=== PATIENT | male | born 1960 | race Caucasian/White ===

== ENCOUNTER 2016-12-02 10:58 | Day surgery (SDC) | payer BC ==
[~2016-12-02 10:58] MED LIST: DIPRIVAN 200 MG/20 ML IV ONE; SUBLIMAZE 100 MCG/2 ML IV ONE; Versed 2 MG/2 ML Injection IV ONE
[2016-12-02] MEDS ORDERED: Lactated Ringers 1,000 ML IV SCH (11:30)
--- NOTE | 2016-12-02 11:54 | HP ---
DATE OF SURGERY: 12/02/2016 HISTORY OF PRESENT ILLNESS: The patient is a 56 year-old had some rectal bleeding a month or so ago, for three days dark blood. Improved, had some dull aches lower abdomen moving towards the back. Family history negative for colon cancer. Last colonoscopy ten years ago. He is in need of follow up screening colonoscopy. PAST MEDICAL HISTORY: Asthma, restless leg syndrome, arthritis. PAST SURGICAL HISTORY: Left wrist repair in the past. MEDICATIONS: Albuterol, pramipexole, diclofenac. ALLERGIES: NKDA. FAMILY HISTORY: Lung cancer, uterine cancer, leukemia, and breast cancer but negative for colon cancer. SOCIAL HISTORY: No smoking. He does drink some alcohol denies abuse. REVIEW OF SYSTEMS: Ten systems reviewed per preadmission questionnaire. No chest pain or palpitations other systems negative or noncontributory as above and per admission assessment. PHYSICAL EXAMINATION: GENERAL: No acute distress. HEENT: Sclerae nonicteric. NECK: No JVD. CHEST: Equal excursion, nonlabored breathing. CVS: Regular rate and rhythm. ABDOMEN: Soft, nontender currently. He has some history of lower abdominal aches radiating towards his back. No peritoneal signs. EXTREMITIES: No significant edema. NEURO: Alert, moving extremities symmetrically. No gross motor deficits noted. RECTAL: Deferred timed to endoscopy exam. IMPRESSION: A 56 year-old in need of follow up screening colonoscopy. I feel he is a candidate. Risks and benefits explained in detail but not limited to bleeding or infection, small risk of bowel injury or perforation possibly requiring open procedure, small risk of missed or nondiagnosis or incomplete exam possibly requiring barium enema, other studies or procedures, general risk of bowel prep, risk of sedation, postoperative risk of nausea, vomiting or cramping but not limited to. He understands and agrees to the planned procedure and will proceed with outpatient screening colonoscopy.
--- NOTE | 2016-12-02 13:49 | OP ---
SURGERY DATE: 12/02/16 SURGERY TIME: 1250 PREOPERATIVE DIAGNOSIS: 1. NEED FOR SCREENING COLONOSCOPY. PATIENT REPORTED LAST COLONOSCOPY 10 YEARS OR MORE AGO. NO CURRENT RECTAL BLEEDING. POSTOPERATIVE DIAGNOSIS: 1. POOR PREP LIMITING THE EXAM. 2. FEW DIVERTICULA. 3. SMALL POLYP TRANSVERSE COLON. 4. SMALL RAISED LESIONS VS HYPERPLASTIC LESIONS RECTUM. 5. SMALL INTERNAL/EXTERNAL HEMORRHOIDS. 6. SLIGHTLY TORTUOUS COLON. PROCEDURE: 1. Colonoscopy to cecum. 2. Hot snare polypectomy small transverse colon polyp. 3. Hot biopsy removal small raised lesion vs hyperplastic lesions rectum X 5 or 6. SURGEON: Dr. Amador Simons. ANESTHESIA: MAC. ESTIMATED BLOOD LOSS: Minimal. INDICATIONS: As noted above. Risks and benefits explained in detail, but not limited to. Consent was obtained. DESCRIPTION OF PROCEDURE AND FINDINGS: The patient was taken to the endoscopy room. MAC anesthesia introduced. After official time-out, no disagreement in planned procedure. Digital rectal exam did not reveal any rectal masses. He did have some small internal/external hemorrhoids. Video colonoscope inserted and passed up through the poorly prepped colon through the sigmoid, descending, and transverse colon. With external pressure, the scope was able to be passed down the ascending colon to the cecum. The appendiceal orifice and valve were well visualized. Prep overall was poor with several areas of liquidy, semi-solid stool limiting the exam for potentially small lesions. This was suction irrigated out as well as possible, but did limit the exam. On withdrawal of the scope, there were no signs of any large polyps, masses, or obstructing lesions in the right colon. In the transverse colon, there was a small polyp about 3 mm in size removed with hot snare polypectomy and brief bursts of cautery. Initially, the staff couldn't find it. They then later said that they thought they had found the polyp and sent off for pathology. Otherwise, he had a few diverticula and some small internal/external hemorrhoids in the rectum. There were 5 or 6 small little raised lesions. Whether these are hyperplastic lesions vs early polyps or a variation in mucosa, they were removed with hot biopsy forceps and brief bursts of cautery. Good hemostasis was noted. Otherwise, there were no signs of any large polyps, masses, or obstructing lesions. Again, the prep did limit the exam for potentially small lesions. Pending follow-up of path results, might need a follow-up colonoscopy in 3 years if any adenomas or possibly 5 years if all hyperplastic lesions given the quality of the prep. Findings discussed with the family out in the waiting area.
[2016-12-02 15:02] VITALS: O2SAT 98
[2016-12-02 15:04] VITALS: BP 126/76; PULSE 58
== END 2016-12-02 14:45 | disposition home or self-care (01) ==
LOC: SDC 10:58
PROVIDERS: ATTEND Surgery
PROC: 0DBL8ZX Excision of Transverse Colon, Via Natural or Artificial Opening Endoscopic, Diagnostic (ICD-10-PCS; principal; 2016-12-02)
PROC: 0DBP8ZX Excision of Rectum, Via Natural or Artificial Opening Endoscopic, Diagnostic (ICD-10-PCS; 2016-12-02)
DX: D12.3 Benign neoplasm of transverse colon (principal); K57.90 Diverticulosis of intestine, part unspecified, without perforation or abscess without bleeding; K64.4 Residual hemorrhoidal skin tags; K64.8 Other hemorrhoids; Z12.11 Encounter for screening for malignant neoplasm of colon
CPT/HCPCS: 00810; 36415; 88305; J2250; J2704; J3010

== ENCOUNTER 2018-12-15 17:55 | Emergency (ER) | payer BC, OTHER ==
--- NOTE | 2018-12-15 18:35 | ERPHSYRPT ---
- History of Present Illness Source: patient Exam Limitations: no limitations Patient Subjective Stated Complaint: states fell one week ago injuring left lower leg. has had increasing swelling and tenderness to injured area. went to [facility] care today and was sent to er for eval. Triage Nursing Assessment: ambulated to room per self. skin w/d, color normal, resp easy. moderate swelling noted to left lower leg with bruising. good pedal pulse noted to left foot. Method of Injury: fell Occurred: last week Quality: constant Lower Extremities Pain: leg: left Modifying Factors: Improves With: nothing Associated Symptoms: other (pain and swelling left leg) Hx Tetanus, Diphtheria Vaccination/Date Given: Yes Hx Influenza Vaccination/Date Given: No Hx Pneumococcal Vaccination/Date Given: No <YOU YBARRA - Last Filed: 12/15/18 19:01> <SAMIA ALVAREZ - Last Filed: 12/15/18 21:36> - History of Present Illness Time Seen by Provider: 12/15/18 18:30 Physician History: 58-year-old white male arrives with complaint of pain and swelling of his left leg symptoms for one week. According to patient he fell a week ago he's noted swelling which is progressing and pain in his left leg. He states there is felt somewhat hot. He presented to [facility] and was promptly redirected to the emergency room. Past medical history includes asthma, arthritis, rectal bleeding. Past surgical history includes hernia repair, orthopedic surgery, left wrist ORIF, right knee surgery (total knee replacement) . social history occasional alcohol use denies tobacco use. (YOU YBARRA) Allergies/Adverse Reactions: stings Allergy (Severe, Uncoded 12/15/18 18:10) Hives wasps stings Home Medications: Albuterol 8 gm Mdi Hfa [Ventolin Hfa MDI] 2 puffs IH BID PRN 12/02/16 [ History] - Review of Systems Constitutional: No Fever, No Chills Eyes: No Symptoms Ears, Nose, & Throat: No Symptoms Respiratory: No Cough, No Dyspnea Cardiac: No Chest Pain, No Edema, No Syncope Abdominal/Gastrointestinal: No Abdominal Pain, No Nausea, No Vomiting, No Diarrhea Genitourinary Symptoms: No Dysuria Musculoskeletal: Other (left leg moderate edema, mild erythema left leg, mild calf tenderness, old healed incisionleft knee) Skin: Other (mild erythema left leg) Neurological: No Dizziness, No Focal Weakness, No Sensory Changes Psychological: No Symptoms Endocrine: No Symptoms All Other Systems: Reviewed and Negative <YOU YBARRA - Last Filed: 12/15/18 19:01> - Past Medical History Pertinent Past Medical History: Yes Neurological History: No Pertinent History ENT History: No Pertinent History Cardiac History: No Pertinent History Respiratory History: Asthma Endocrine Medical History: No Pertinent History Musculoskeletal History: Arthritis GI Medical History: Other History: No Pertinent History Psycho-Social History: No Pertinent History Male Reproductive Disorders: No Pertinent History Other Medical History: rectal bleeding that lasted a couple of days a few months ago none since - Past Surgical History Past Surgical History: Yes Neuro Surgical History: No Pertinent History Cardiac: No Pertinent History Respiratory: No Pertinent History Gastrointestinal: Hernia Repair Genitourinary: No Pertinent History Musculoskeletal: Orthopedic Surgery Male Surgical History: No Pertinent History Other Surgical History: left wrist orif. rt knee scope - Social History Smoking Status: Never smoker Exposure to second hand smoke: No Drug Use: none Patient Lives Alone: No <YOU YBARRA - Last Filed: 12/15/18 19:01> - Physical Exam General Appearance: alert Eyes, Ears, Nose, Throat Exam: moist mucous membranes Neck Exam: non-tender, supple Cardiovascular/Respiratory Exam: chest non-tender, normal breath sounds, regular rate/rhythm, no respiratory distress Gastrointestinal/Abdominal Exam: non-tender, guarding Back Exam: normal inspection Hips Exam: bilateral: non-tender, normal inspection, normal range of motion Legs Exam: right leg: non-tender, normal inspection, normal range of motion, left leg: swelling, other (mild tenderness with palpation left calf, moderate edema left lowerleg, mild erythema left leg.) Knees Exam: bilateral knee: non-tender, normal inspection, normal range of motion Ankle Exam: bilateral ankle: non-tender, normal inspection, normal range of motion, no evidence of injury Foot Exam: bilateral foot: non-tender, normal inspection, normal range of motion , no evidence of injury DTR - Lower Extremities Exam: ankle (R): 2+, ankle (L): 2+ Neuro/Tendon Exam: normal sensation, normal motor functions Mental Status Exam: alert, oriented x 3, cooperative Skin Exam: other (mild erythema left leg) SpO2 Interpretation: normal (98%) SpO2: 98 <YOU YBARRA BERTA - Last Filed: 12/15/18 19:01> - Nursing Vital Signs Nursing Vital Signs: Initial Vital Signs Temperature 97.6 F 12/15/18 18:06 Pulse Rate 72 12/15/18 18:06 Respiratory Rate 16 12/15/18 18:06 Blood Pressure 127/74 12/15/18 18:06 O2 Sat by Pulse Oximetry 98 12/15/18 18:06 Pain Scale Pain Intensity 0 - Course Nursing assessment & vital signs reviewed: Yes - CT Exams Chest CT Interpretation: Negative (For PE study.) - Radiology Ultrasound Exam Left Venous Lower Extremity Ultrasound: tele radiology report (Negative for DVT. Lymph nodes noted in the groins.) <SAMIA ALVAREZ - Last Filed: 12/15/18 21:36> Ordered Tests: Active Orders 24 hr Category Date Time Status IV Insertion STAT Care 12/15/18 18:28 Active CHEST WITH CONTRAST [CT] Stat Exams 12/15/18 20:00 Taken VENOUS UNILAT/LIMITED EXTREMIT [US] Stat Exams 12/15/18 19:18 Taken CBC W DIFF Stat Lab 12/15/18 18:45 Completed CMP Stat Lab 12/15/18 18:45 Completed D-DIMER QUANTITATION Stat Lab 12/15/18 18:45 Completed PROTIME WITH INR Stat Lab 12/15/18 18:45 Completed PTT Stat Lab 12/15/18 18:45 Completed Medication Summary Discontinued Medications Generic Name Dose Route Start Last Admin Trade Name Freq PRN Reason Stop Dose Admin Clindamycin HCl/Dextrose 600 mg in 50 mls @ 100 mls/hr 12/15/18 19:22 19:29 Clindamycin-D5w 600 Mg/50 Ml IV 12/15/18 19:51 100 ml/hr STAT STA 100 mls/hr Administration Clindamycin HCl/Dextrose Confirm 12/15/18 19:25 Clindamycin-D5w 600 Mg/50 Ml Administered 12/15/18 19:26 Dose 600 mg in 50 mls @ ud IV .STK-MED ONE Lab/Rad Data: Laboratory Result Diagrams 12/15/18 18:45 12/15/18 18:45 Laboratory Results 12/15/18 12/15/18 12/15/18 Range/Units 18:45 18:45 18:45 WBC 6.2 (4.0-10.5) K/mm3 RBC 4.43 (4.1-5.6) M/mm3 Hgb 12.8 (12.5-18.0) gm/dl Hct 41.0 L (42-50) % MCV 92.6 (78-100) fl MCH 28.9 (26-32) pg MCHC 31.2 L (32-36) g/dl RDW 14.9 H (11.5-14.0) % Plt Count 189 (150-450) K/mm3 MPV 11.3 H (6-9.5) fl Gran % 61.7 (36.0-66.0) % Eos # (Auto) 0.22 (0-0.5) Absolute Lymphs (auto) 1.48 (1.0-4.6) Absolute Monos (auto) 0.66 (0.0-1.3) Lymphocytes % 23.9 L (24.0-44.0) % Monocytes % 10.6 (0.0-12.0) % Eosinophils % 3.5 (0.00-5.0) % Basophils % 0.3 (0.0-0.4) % Absolute Granulocytes 3.82 (1.4-6.9) Basophils # 0.02 (0-0.4) PT 12.4 (8.83-12.87) SECONDS INR 1.07 (0.8-3.0) APTT 29.1 (24.1-36.1) SECONDS D-Dimer 781 H* (215-500) ng/mL Sodium 140 (137-145) mmol/L Potassium 4.3 (3.5-5.1) mmol/L Chloride 101 (98-107) mmol/L Carbon Dioxide 28 (22-30) mmol/L Anion Gap 15.2 H (5-15) MEQ/L BUN 17 (9-20) mg/dL Creatinine 0.76 (0.66-1.25) mg/dL Estimated GFR > 60.0 ML/MIN Glucose 93 (74-106) mg/dL Calcium 9.5 (8.4-10.2) mg/dL Total Bilirubin 0.80 (0.2-1.3) mg/dL AST 30 (17-59) U/L ALT 25 (0-50) U/L Alkaline Phosphatase 84 (38-126) U/L Serum Total Protein 8.2 (6.3-8.2) g/dL Albumin 4.7 (3.5-5.0) g/dL - Progress Progress: improved <YOU YBARRA - Last Filed: 12/15/18 19:01> - Progress Will see patient in: office Counseled pt/family regarding: need for follow-up <SAMIA ALVAREZ - Last Filed: 12/15/18 21:36> - Progress Progress Note: 12/15/18 19:[address] Alvarez she will accept patient's care due to shift change. (YOU YBARRA) Pt was treated with Clindamycin in the ED. PE CT study was negative for PE. US was negative for DVT. Pt was advised to finish the ABX as ordered, and to f/ u with PCP. 12/15/18 21:34 (SAMIA ALVAREZ) <YOU YBARRA - Last Filed: 12/15/18 19:01> - Departure Time of Disposition: 21:35 Departure Disposition: Home Critical Care Time: No <SAMIA ALVAREZ - Last Filed: 12/15/18 21:36> - Departure Clinical Impression: Cellulitis Condition: Stable Referrals: DOCTOR,NO FAMILY [Primary Care Provider] - Additional Instructions: Pt was r/o for DVT. He does have cellulitis of L LE, and Clindamycin IV was given in the ER. A prescription for Clindamycin PO will be given on D/C. Pt was advised to f/u with PCP. List of PCPs that accepting new pts, will be given to the pt on d/c. Forms: Providers Accepting New PT'S Prescriptions: Clindamycin HCl 600 mg PO TID 10 Days #30 capsule
[2018-12-15 19:04] LABS: BASOPHIL % 0.3 % (0.0-0.4); Basophil (Absolute #) 0.02 (0-0.4); Eosinophil % 3.5 % (0.00-5.0); Eosinophil (Absolute #) 0.22 (0-0.5); Granulocyte Absolute (ANC) 3.82 (1.4-6.9); Granulocytes % 61.7 % (36.0-66.0); Hemoglobin 12.8 gm/dl (12.5-18.0); Lymphocyte (Absolute #) 1.48 (1.0-4.6); Lymphocytes % 23.9 % (24.0-44.0); Mean Cell Volume 92.6 fl (78-100); Mean Corpuscular Hemoglobin 28.9 pg (26-32); Mean Corpuscular Hgb Concent. 31.2 g/dl (32-36); Mean Platelet Volume 11.3 fl (6-9.5); Monocyte (Absolute #) 0.66 (0.0-1.3); Monocytes % 10.6 % (0.0-12.0); Platelet Count 189 K/mm3 (150-450); Red Blood Count 4.43 M/mm3 (4.1-5.6); Red Cell Distribution Width 14.9 % (11.5-14.0); White Blood Count 6.2 K/mm3 (4.0-10.5)
[2018-12-15 19:14] LABS: ALBUMIN 4.7 g/dL (3.5-5.0); ALKALINE PHOSPHATASE 84 U/L (38-126); ANION GAP 15.2 MEQ/L (5-15); BLOOD UREA NITROGEN 17 mg/dL (9-20); CHLORIDE 101 mmol/L (98-107); Calcium 9.5 mg/dL (8.4-10.2); Carbon Dioxide 28 mmol/L (22-30); Creatinine 1 0.76 mg/dL (0.66-1.25); Glucose 93 mg/dL (74-106); Potassium 4.3 mmol/L (3.5-5.1); SGOT/AST 30 U/L (17-59); SGPT/ALT 25 U/L (0-50); SODIUM 140 mmol/L (137-145); Total Protein 8.2 g/dL (6.3-8.2)
[2018-12-15] MEDS ORDERED: CLINDAMYCIN-D5W 600 MG/50 ML*** 600 MG/50 ML BAG IV STA (19:22)
[2018-12-15] MEDS ORDERED: CLINDAMYCIN-D5W 600 MG/50 ML*** 600 MG/50 ML BAG IV ONE (19:25)
[2018-12-15 19:33] LABS: INR 1.07 (0.8-3.0); PROTIME 12.4 SECONDS (8.83-12.87)
[2018-12-15 19:36] LABS: PTT 29.1 SECONDS (24.1-36.1)
[2018-12-15 21:49] VITALS: BP 121/7; PULSE 88; O2SAT 97
--- NOTE | 2018-12-16 08:50 | XRAY ---
Indication: Elevated d-dimer. Left leg erythema and swelling. Multiple contiguous axial images obtained through the chest using 80 cc Isovue 370 contrast and PE protocol. Comparison: None There is good opacification of the pulmonary arteries to include the lobar and segmental branches. No filling defect or pulmonary embolus. Heart is not enlarged. Aorta is normal in course and caliber. No pathologic mediastinal/hilar lymphadenopathy. Incidental enlarged heterogeneous left lobe of the thyroid. Examination of the lung parenchyma demonstrates mild bilateral dependent atelectasis. No suspicious pulmonary mass, infiltrate, or effusion. Bony thorax intact with mild degenerative changes throughout the spine. Limited upper abdomen demonstrates 2 hepatic cysts, largest 1.6 cm. Also 2.7 cm right renal cyst and 4 mm nonobstructing left renal calculus. Impression: 1. Negative pulmonary embolus. No acute cardiopulmonary abnormalities. 2. Enlarged heterogeneous left thyroid gland. Sonogram may yield further information if clinically warranted. 3. Incidental hepatic/right renal cysts and left renal micro-calculus. CT DI 28.13
--- NOTE | 2018-12-16 08:50 | XRAY ---
Indication: Left leg pain, erythema, and swelling. History fall. Two-dimensional sonogram and color Doppler imaging of the major venous vessels of the left leg was performed. Comparison: None No thrombus seen in the examined deep venous vessels of the left leg including greater saphenous vein. Veins demonstrate normal compressibility. Venous waveforms are normal with and without augmentation. A few incidental benign-appearing left inguinal lymph nodes. Impression: Left leg negative for DVT. Comment: Preliminary report was given.
== END 2018-12-15 21:52 | disposition home or self-care (01) ==
LOC: ED 17:55
DX: L03.116 Cellulitis of left lower limb (principal); M19.90 Unspecified osteoarthritis, unspecified site
CPT/HCPCS: 36000; 36415; 71260; 80053; 85025; 85379; 85610; 85730; 93971; 96365; 99284